=== PATIENT | female | born 2000 | race Hispanic/Latino ===

== ENCOUNTER 2021-11-14 15:03 | Emergency (ER) | payer SELFPAY ==
[2021-11-14] MEDS ORDERED: Ketorolac Tromethamine 30 MG/ML VIAL ONE (16:36)
== END 2021-11-14 16:40 | disposition home or self-care (01) ==
LOC: CSHERS 15:03
DX: M54.50 Low back pain, unspecified (principal); M62.838 Other muscle spasm; J45.909 Unspecified asthma, uncomplicated
CPT/HCPCS: 96372; 99283; J1885

== ENCOUNTER 2023-04-02 10:06 | Inpatient (IN) | payer OTHER ==
[2023-04-02] MEDS ORDERED: Tranexamic Acid 1,000 MG/10 ML VIAL IVP PRN (10:50)
[2023-04-02] MEDS ORDERED: hydrALAZINE 20 MG/ML VIAL SLOW IVP PRN ×2 (10:50→18:56)
[2023-04-02] MEDS ORDERED: Promethazine HCl 25 MG/ML VIAL IM PRN (10:50)
[2023-04-02] MEDS ORDERED: Methylergonovine 0.2 MG/ML VIAL IM PRN (10:50)
[2023-04-02] MEDS ORDERED: Carboprost 250 MCG/ML AMP IM PRN (10:50)
[2023-04-02] MEDS ORDERED: Ondansetron PF 4 MG/2 ML Vial IVP PRN (10:50)
[2023-04-02] MEDS ORDERED: Misoprostol 200 MCG TAB PR PRN (10:50)
[2023-04-02] MEDS ORDERED: NS w/ Oxytocin 30 units 500 ML ONE (10:55)
[2023-04-02] MEDS ORDERED: NS w/ Oxytocin 30 units 500 ML IV SCH (11:00)
[2023-04-02 11:22] VITALS: BMI 34.4
[2023-04-02 11:31] LABS: Mean Corpuscular HGB CONC 33.9 g/dL (32.0-36.0); Mean Corpuscular Hemoglobin 30.3 pg (27.0-33.0); Mean Corpuscular Volume 89.4 fl (81.6-98.3); Mean Platelet Volume 11.7 fl (7.4-10.4); Platelet Count 188 10x3/uL (150-450); RBC Distribution Width 12.4 % (11.5-14.5); Red Blood Cell (RBC) Count 3.96 10x6/uL (3.90-5.03); White Blood Cell (WBC) Count 7.8 10x3/uL (3.5-10.5)
[2023-04-02] MEDS ORDERED: Ibuprofen 800 MG TAB PO PRN (11:55)
[2023-04-02] MEDS ORDERED: Lidocaine 1% (PF) 30 ML VIAL SC PRN (11:55)
[2023-04-02 12:01] LABS: Hep B Surf Ag - L&D Non-Reactive S/CO (NonReactive); Syphilis Antibody Nonreactive (Nonreactive); Syphilis Antibody Index 0.06 S/CO (<1.00 Non-Reactive)
[2023-04-02 18:05] LABS: ALT (SGPT) 10 U/L (8-55); AST (SGOT) 10 U/L (5-34); Albumin 3.5 g/dL (3.5-5.0); Alkaline Phosphatase 131 U/L (40-110); Anion Gap 17 mmol/L (10-20); BUN (Urea Nitrogen) 6 mg/dL (7.0-18.7); Bilirubin, Total 0.4 mg/dL (0.2-1.2); Calc. Creatinine Clearance 175 mL/min (70-130); Calcium 8.8 mg/dL (7.8-10.44); Carbon Dioxide 18 mmol/L (22-29); Chloride 106 mmol/L (98-107); Estimated GFR 126; Globulin 2.5 g/dL (2.4-3.5); Glucose 140 mg/dL (70-105); Potassium 3.7 mmol/L (3.5-5.1); Sodium 137 mmol/L (136-145)
[2023-04-02] MEDS ORDERED: Milk Of Magnesia 30 ML UDCUP PO PRN (18:56)
[2023-04-02] MEDS ORDERED: Bisacodyl 10 MG SUPP PR PRN (18:56)
[2023-04-02] MEDS ORDERED: Boostrix 0.5 ML (Tdap) VIAL (>/=7 yrs of age) IM ONE (18:56)
[2023-04-02] MEDS: Lactated Ringer's 1,000 ML IV SCH (19:26)
[2023-04-02] MEDS ORDERED: Acetaminophen 325 MG TAB PO PRN (21:59)
[2023-04-02] MEDS: Docusate 100 MG CAP PO SCH (22:10)
[2023-04-02] MEDS: Ibuprofen 800 MG TAB PO SCH (22:10)
[2023-04-03] MEDS: Ibuprofen 800 MG TAB PO SCH ×2 (04:38→12:27)
[2023-04-03] MEDS: Lactated Ringer's 1,000 ML IV SCH (05:54)
[2023-04-03] MEDS ORDERED: Ferrous Sulfate 325 MG TAB PO SCH (08:00)
[2023-04-03] MEDS: Docusate 100 MG CAP PO SCH (09:29)
[2023-04-03 17:22] VITALS: TEMP 98.1
[2023-04-03 20:34] VITALS: BP 128/82
== END 2023-04-03 21:15 | disposition home or self-care (01) | DRG 807 ==
LOC: CSHLD/OP 10:06 → CSHLD 11:37 → CSHPP 20:50
PROVIDERS: ADMIT Student in an Organized Health Care Education/Training Program; ATTEND Student in an Organized Health Care Education/Training Program
PROC: 10E0XZZ Delivery of Products of Conception, External Approach (ICD-10-PCS; principal; 2023-04-02)
PROC: 10907ZC Drainage of Amniotic Fluid, Therapeutic from Products of Conception, Via Natural or Artificial Opening (ICD-10-PCS; 2023-04-02)
DX: O13.4 Gestational [pregnancy-induced] hypertension without significant proteinuria, complicating childbirth (principal); Z37.0 Single live birth; Z3A.37 37 weeks gestation of pregnancy
CPT/HCPCS: 36415; 80053; 85027; 86780; 86850; 86900; 86901; 87340; 99285; J2590